=== PATIENT | female | born 1980 | race Asian ===

== ENCOUNTER 2017-10-10 04:41 | Inpatient (IN) | payer OTHER ==
[2017-10-10 05:17] VITALS: BMI 27.3
[2017-10-10] MEDS ORDERED: Lactated Ringer's 1,000 ML IV SCH (07:15)
[2017-10-10 07:46] LABS: #Basophils 0.1 thou/uL (0.0-0.2); #Eosinphils 0.1 thou/uL (0.0-0.7); #Lymphocytes 1.5 thou/uL (1.20-3.40); #Monocytes 0.6 thou/uL (0.11-0.59); #Neutrophils 7.8 thou/uL (1.40-6.50); %Basophils 0.7 % (0.0-1.0); %Eosinophils 0.9 % (0.0-10.0); %Monocytes 5.7 % (0.0-10.0); Hematocrit 40.3 % (36.0-47.0); Mean Platelet Volume 6.9 fL (7.4-10.4); White Blood Cell (WBC) Count 10.1 thou/uL (4.8-10.8)
[2017-10-10 07:57] LABS: Bilirubin Negative (Negative); Blood, Urine Moderate (Negative); Glucose, Urine (Dipstick) Negative (Negative); Ketone, Urine Trace mg/dL (Negative); Nitrite Negative (Negative); Protein, Urine (Dipstick) 30 mg/dL (Neg-Trace); Urobilinogen 0.2 mg/dL (0.2-1.0)
[2017-10-10 08:03] LABS: Bacteria/HPF 4+ HPF (None Seen); RBC/HPF 0-3 HPF (0-3)
[2017-10-10 08:10] LABS: ALT (SGPT) 14 U/L (8-55); AST (SGOT) 16 U/L (5-34); Alkaline Phosphatase 227 U/L (40-150); Anion Gap 14 mmol/L (10-20); BUN (Urea Nitrogen) 6 mg/dL (7.0-18.7); Bilirubin, Total 0.3 mg/dL (0.2-1.2); Calc. Creatinine Clearance 146 mL/min (70-130); Calcium 9.2 mg/dL (7.8-10.44); Carbon Dioxide 22 mmol/L (22-29); Chloride 107 mmol/L (98-107); Estimated GFR-MDRD Greater than 90; Globulin 3.2 g/dL (2.4-3.5); Protein, Total 6.4 g/dL (6.0-8.3)
[2017-10-10 08:16] LABS: Hyaline Casts/LPF 0-3 HYALINE CAST LPF (0-3 Hyaline)
[2017-10-10] MEDS ORDERED: Ondansetron HCl/PF 4 MG/2 ML Vial IVP PRN (09:39)
[2017-10-10] MEDS ORDERED: Promethazine HCl 25 MG/ML VIAL IM PRN (09:39)
[2017-10-10] MEDS ORDERED: Acetaminophen 500 MG TAB PO PRN (09:39)
[2017-10-10] MEDS ORDERED: Lidocaine 1% (PF) 30 ML VIAL SC PRN (09:39)
--- NOTE | 2017-10-10 12:10 | ULT ---
OB ULTRASOUND: Date: 10/10/17 HISTORY: Twin intrauterine gestation. Patient is currently having contractions. Evaluate weight and posi tioning of each fetus. COMPARISON: None available. FINDINGS: There is evidence of a twin intrauterine gestation. Twin A is in cephalic presentation, with Twin B i n transverse presentation with the head to the maternal right. Cardiac Doppler does demonstrate heart tones with heart rate of Twin A at 140 beats/minute and heart rate of Twin B at 1 52 beats/minute. The placenta is located anteriorly. While the lower uterine segment is not well visualized due to pos itioning of the head of Twin A in the lower uterine segment, there is no evidence of placenta p revia. There is an image demonstrating a membrane between each fetus. Subjectively, there does appear to be decrease in amniotic fluid volume. Amniotic fluid index of Twin A is calculated at 5.7 cm and amniotic fluid index of Twin B is calculated at 4.9 cm. Measurements TWIN A: BPD: 9.13 cm, 37 weeks HC: 31.6 cm, 35 weeks/3 days AC: 30.01 cm, 34 weeks FL: 6.84 cm, 35 weeks/1 day The estimated gestational age of Twin A is 35 weeks/2 days with an PAULA on 11/12/17. Gestational age b y last menstrual period is 36 weeks/4 days. Estimated weight by ultrasound is 2,507 gm (5 lbs, 8 oz). This represents 12th percentile for weight. Measurements of TWIN B: BPD: 8.39 cm, 33 weeks/5 days HC: 30.35 cm, 32 weeks/5 days AC: 31.54 cm, 35 weeks/3 days FL: 7.17 cm, 36 weeks/5 days The estimated gestational age of Twin B is 34 weeks/2 days with an PAULA on 11/19/17. Gestational age b y last menstrual period is 36 weeks/4 days. Estimated weight of Twin B is 2,674 gm (5 lbs, 14 o z). This represents 24th percentile for weight. anatomical structures were not evaluated on this examination and are difficult to evaluate due to gestational age of each fetus. IMPRESSION: 1. Twin intrauterine gestation with Twin A in cephalic presentation and Twin B in transverse present ation with head to the maternal right. Cardiac Doppler does demonstrate heart tones in each fet us. 2. Gestational age by ultrasound of Twin A is 35 weeks/2 days with an PAULA on 11/12/17. Estimated fet al weight of Twin A is 2,507 gm (5 lbs, 8 oz). 3. Gestational age of Twin B is 34 weeks/2 days with an PAULA on 11/19/17. Estimated weight of T win B is 2,674 gm (5 lbs, 14 oz). 4. Oligohydramnios. Above findings discussed with Kayley L&D nurse, on 10/10/17 at 1051 hours. CODE CR. POS: SB
--- NOTE | 2017-10-10 23:51 | HP ---
DATE OF ADMISSION: 10/10/2017 REASON FOR ADMISSION: Twin at 36-1/2 weeks' gestation, contractions, elevated blood pressu res, protein to creatinine ratio of 0.39. HISTORY OF PRESENT ILLNESS: The patient is a 37-year-old 1, para 0, who sees Dr. Hart, PAULA is 11/03/2017. She has dichorionic diamniotic in vitro twin . There was cephalic at last presentation and patient presented today with complaining of contractions. She was noted to have cain vated blood pressures of 140s/90s. Laboratory evaluation reveals no evidence of preeclampsia except for elevated protein to creatinine ratio on a clean catch specimen. She denies headache or scotoma. She denies rupture of membranes. 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 PAST MEDICAL HISTORY: Insulin resistance. PAST SURGICAL HISTORY: Denies. ALLERGIES: Denies. MEDICATIONS: Metformin and vitamins. SOCIAL HISTORY: Denies tobacco, alcohol, or drug use. FAMILY HISTORY: Noncontributory. REVIEW OF SYSTEMS: Noncontributory. PHYSICAL EXAMINATION: GENERAL: White female, in no acute distress. VITAL SIGNS: Blood pressure 142/86, afebrile, pulse 85. HEENT: Within normal limits. LUNGS: Clear to auscultation bilaterally. HEART: Regular rhythm. BREASTS: No masses bilaterally. ABDOMEN: Soft, nontender. Palpable contractions every 5 to 8 minutes. PELVIC: Vulva without lesions. Vagina without discharge. Cervix, 1, long, and high, cephalic. EXTREMITIES: Without clubbing, cyanosis or edema. heart rate tracing reveals category strip time 1, tracing x2. IMPRESSION: Elevated pressures, elevated protein to creatinine, 36-1/2 weeks' gestation with dichori onic diamniotic twins. PLAN: Admission, 24-hour urine, serial blood pressures, ultrasound and further evaluation.
--- NOTE | 2017-10-11 08:56 | PRG ---
DATE OF SERVICE: 10/11/2017 TIME OF SERVICE: 07:45 SUBJECTIVE: Ms. Ellington is resting comfortably. She has occasional contractions. She reports acti ve fetus x2. PHYSICAL EXAMINATION: VITAL SIGNS: Patient's blood pressures have been in 120s-130s/70s-80s throughout. She denies headac he or scotoma. ABDOMEN: Soft and nontender. FHTs 140s to 150s x2. PELVIC: Vulva without lesions. Vagina without discharge. Cervical exam deferred. EXTREMITIES: Trace edema, 1+ DTRs. LABORATORY DATA: A 24-hour urine pending. Ultrasound revealed cephalic twins. AIDA was measured at 4 and 5 respectively. This was reported as oligohydramnios. Of note, AIDA is not an appropriate felicitas urement for twins as largest pocket is the utilized measurement; however, this is somewhat low and pr obably represents oligohydramnios. IMPRESSION: 1. Elevated blood pressures, now normalizing at bed rest with an elevated protein to creatinine rati o with pending 24-hour urine at 36-37 weeks' gestation. 2. Dichorionic diamniotic twins. 3. Low AIDA/oligohydramnios. PLAN: Discussed patient care plan with Dr. Hart. We will go ahead and give the patient betamethas one 12 mg IM today and tomorrow and anticipate induction of labor in 48 hours. We will follow up on 24-hour urine after completes at 10 o'clock today.
[2017-10-11] MEDS: Betamet Acet/Betamet Na Ph 30 MG/5 ML VIAL IM SCH (10:40)
[2017-10-11 10:43] LABS: Collection Duration 24 hrs
[2017-10-11 11:11] LABS: Protein - 24 Hr 207 mg/24 hr (Less than 300); Protein, Urine 18 mg/dL (1-14)
[2017-10-11] MEDS ORDERED: Zolpidem Tartrate 5 MG TAB PO PRN (20:44)
[2017-10-12] MEDS: Betamet Acet/Betamet Na Ph 30 MG/5 ML VIAL IM SCH (10:44)
--- NOTE | 2017-10-12 12:24 | PRG ---
DATE OF SERVICE: 10/12/2017 TIME OF SERVICE: 10:20 a.m. SUBJECTIVE: The patient is doing well without complaints. She denies any vaginal bleeding, leakage of fluid, contractions or other concerns. She reports good movement x2. OBJECTIVE: VITAL SIGNS: Blood pressure is 119-142/75-96, pulse 81-113, respiratory rate 16 and temperature 98.8 . GENERAL: Awake and alert, in no acute distress. CHEST: Nonlabored breathing. ABDOMEN: Gravid, soft and nontender to palpation. NONSTRESS TEST: Baby A 150s, moderate variability, positive accelerations, no decelerations. Baby B 130s, moderate variability, positive accelerations, no decelerations. TOCO: Contractions every 4 minutes. LABORATORY DATA: A 24-hour urine returned with 207 mg of protein. ASSESSMENT AND PLAN: The patient will receive her second dose of steroids today with planned inducti on tomorrow for elevated blood pressures and oligohydramnios with chorionic diamniotic twin gestation . Continue to monitor at this time.
[2017-10-12] MEDS ORDERED: Acetaminophen/Codeine 30-300mg Tablet PO PRN (19:23)
[2017-10-12] MEDS ORDERED: HYDROcodone/Acetaminophen 5/325 mg Tablet PO PRN (19:23)
[2017-10-12] MEDS ORDERED: LR / Pitocin 40 units/1000 ml 1,000 ML IV PRN (19:23)
[2017-10-12] MEDS ORDERED: Lidocaine 1% (PF) 30 ML VIAL SC PRN (19:23)
[2017-10-12] MEDS ORDERED: LR 500 ML/Oxytocin 10 units 500 ML IV SCH (19:30)
[2017-10-13] MEDS ORDERED: Fentanyl 4 mcg/Marc 0.1% Cadd 100 ML ONE (07:22)
[2017-10-13] MEDS: Lactated Ringer's 1,000 ML IV SCH ×2 (10:00→22:44)
[2017-10-13] MEDS ORDERED: Dextrose 5%-Lactated Ringers 1,000 ML IV SCH (12:45)
[2017-10-13] MEDS ORDERED: Eucerin (Mineral Oil/Petrolatum,White) 30 gm Jar TOP PRN (13:39)
[2017-10-13] MEDS ORDERED: ePHEDrine/0.9% NaCl/PF SYRINGE 50 mg/10 ml SLOW IVP PRN (13:39)
[2017-10-13] MEDS ORDERED: Acetaminophen 325 MG TAB PO PRN (13:39)
[2017-10-13] MEDS ORDERED: Ondansetron HCl/PF 4 MG/2 ML Vial IVP PRN ×2 (13:39→17:10)
[2017-10-13] MEDS ORDERED: diphenhydrAMINE 50 MG/ML VIAL IVP PRN (13:39)
[2017-10-13] MEDS ORDERED: Naloxone HCl 0.4 mg/ml Vial IVP PRN ×2 (13:39)
[2017-10-13] MEDS ORDERED: Promethazine HCl 25 MG/ML VIAL IM PRN (13:39)
[2017-10-13] MEDS ORDERED: Lactated Ringer's 500 ML IV PRN (13:39)
[2017-10-13] MEDS ORDERED: Fentanyl 4mcg/Marcaine 0.1% Cassette 100 ML EPIDURAL SCH (13:45)
[2017-10-13] MEDS ORDERED: Communication Order-Pharmacy FS SCH (13:45)
[2017-10-13] MEDS ORDERED: Ondansetron HCl/PF 4 MG/2 ML Vial ONE ×2 (14:28→16:03)
[2017-10-13] MEDS ORDERED: Ketorolac Tromethamine 30 MG/ML VIAL ONE ×2 (14:28→16:02)
[2017-10-13] MEDS ORDERED: PHENYLEPHRINE-NS 100 MCG/ML 10 ML SYRINGE ONE ×2 (14:28→16:02)
[2017-10-13] MEDS ORDERED: Bicitra 30 ML UDCUP ONE (14:53)
[2017-10-13] MEDS ORDERED: CEFAZOLIN/Water 2 GM/20 ML SYRINGE ONE (14:53)
[2017-10-13 15:24] LABS: Hematocrit 38.7 % (36.0-47.0); Mean Platelet Volume 6.7 fL (7.4-10.4); Red Blood Cell (RBC) Count 4.06 mill/uL (4.20-5.40)
[2017-10-13] MEDS ORDERED: Oxytocin 10 UNITS/ML VIAL ONE (16:02)
[2017-10-13] MEDS ORDERED: Bupivacaine PF 0.5% 30 ML VIAL ONE (16:07)
[2017-10-13] MEDS ORDERED: Morphine PF 1 MG/ML SYR ONE (16:59)
[2017-10-13] MEDS ORDERED: Lanolin Ointment 7 GM TUBE TOP PRN (17:05)
[2017-10-13] MEDS ORDERED: Adacel (T-DAP) 0.5 ML VIAL IM ONE (17:05)
[2017-10-13] MEDS ORDERED: diphenhydrAMINE 25 MG CAP PO PRN (17:05)
[2017-10-13] MEDS ORDERED: Measles/Mumps/Rubella 10 MCG/0.5 ML VIAL SC ONE (17:05)
--- NOTE | 2017-10-13 17:08 | PDOC.OPDEL ---
OB Operative/Delivery Note Delivery Dr/Surgeon: Tanner Assist: Chris Pre-Delivery Diagnosis: arrest of dilation, medically indicated induction Procedure/Post Delivery Dx: primary low transverse CS Weeks gestation: 37 Anesthesia: epidural - Findings A Sex: female Weight: 5 lb 1 oz - 1 min: 8 - 5 min: 9 B Sex: male Weight: 5 lb 14 oz - 1 min: 8 - 5 min: 9 - Additional Findings/Plan Placenta delivered: manual removal findings: low transverse hysterotomy without extension Estimated blood loss: 500ml Post delivery plan: routine recovery
[2017-10-13] MEDS ORDERED: HYDROmorphone 2 MG/ML VIAL SLOW IVP PRN (17:10)
[2017-10-13] MEDS ORDERED: Meperidine HCl/PF 25 MG/ML VIAL SLOW IVP PRN (17:10)
[2017-10-13] MEDS ORDERED: LR w/ Pitocin 40 units/1000 ML BAG IV SCH (17:15)
[2017-10-13] MEDS ORDERED: Ketorolac Tromethamine 30 MG/ML VIAL IVP SCH (17:15)
[2017-10-13] MEDS ORDERED: Misoprostol 200 MCG TAB PR SCH (17:15)
--- NOTE | 2017-10-13 17:34 | OP ---
DATE OF SERVICE: 10/13/2017 PREOPERATIVE DIAGNOSES: 1. A 37-year-old female G1, P0 at 37 weeks with dichorionic diamniotic twin gestation. 2. Mild gestational hypertension. 3. Labor induction with failure to progress past 6 cm, -2 station. POSTOPERATIVE DIAGNOSES: 1. A 37-year-old female G1, P0 at 37 weeks with dichorionic diamniotic twin gestation. 2. Mild gestational hypertension. 3. Labor induction with failure to progress past 6 cm, -2 station. PROCEDURE PERFORMED: Primary low transverse section without extension. SURGEON: Tracee Hart M.D. COLOR ROOM ATTENDANT SURGEON: Jose Cisneros M.D., OB Hospitalist. ANESTHESIA: Epidural. ESTIMATED BLOOD LOSS: 500 mL COUNTS: Correct x2. 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 FINDINGS: 1. Twin A female, vertex presentation, clear amniotic fluid, Apgars 8 and 9, weight 5 pounds 1 ounce. 2. Twin B male infant, vertex presentation, clear amniotic fluid noted. weight 5 pounds 14 ou nces, Apgars 8 and 9. 3. Normal appearing fallopian tubes, uterus, and ovaries. 4. Clear urine. DRAINS: Kingston catheter post-procedure. COMPLICATIONS: None. DISPOSITION: To the recovery room stable. DESCRIPTION OF OPERATIVE PROCEDURE: The patient previously received informed consent in regards to gunnar may. She was taken back to the operating room where she received adequate dosing of her epidural anesthesia. She was prepped and draped in usual sterile fashion. SCDs were in place as well as a Fo becky catheter. A Pfannenstiel incision was made in the lower abdomen. This was carried down to the f ascia. Fascia was nicked in midline. Fascial incision was extended bilaterally with the use of curv ed Green scissors. Rectus fascia was then dissected superiorly and inferiorly off the rectus muscle b ellies. The rectus muscle bellies were divided in the midline. Peritoneal cavity was entered. An Al exis O retractor was then placed. A 2 cm hysterotomy incision was made in the lower uterine segment above the vesicouterine peritoneal reflection. Hysterotomy incision was extended via finger fraction ation. Twin A was delivered in the vertex presentation. Mouth and nares were bulb suctioned on the abdomen. The cord was doubly clamped and cut and handed to pediatric team in attendance. Twin B was then noted to be in vertex presentation. Amniotic bag was ruptured. Baby was delivered in vertex p resentation. Mouth and nares of twin B were bulb suctioned on the abdomen. Cord was doubly clamped and cut and handed to pediatric team in attendance. Usual code blood was then obtained. The placent a was dichorionic diamniotic and manually extracted. The uterus was externalized and the uterus cure tted of any remaining placental fragments with a dry laparotomy sponge. Hysterotomy incision was the n closed in running locking fashion with Monocryl suture with good hemostasis being confirmed. The p jac was irrigated and suctioned. Again, hemostasis was confirmed. The Haroon O retractor was daniella kell and again hemostasis was confirmed. The rectus muscle bellies were hemostatic prior to fascial c losure. The fascia was closed with 0 PDS x2 in running continuous fashion. The subcuticular layer w as then closed with 3-0 plain gut and stapling of the skin was utilized to close the skin incision. The surgery was terminated and no anesthetic or surgical complications.
[2017-10-13] MEDS ORDERED: Bupivacaine 0.25% 10 ML VIAL ONE (19:41)
[2017-10-13 19:47] LABS: Anion Gap 9 mmol/L (10-20); BUN (Urea Nitrogen) 6 mg/dL (7.0-18.7); Calc. Creatinine Clearance 141 mL/min (70-130); Calcium 8.1 mg/dL (7.8-10.44); Carbon Dioxide 23 mmol/L (22-29); Chloride 109 mmol/L (98-107); Estimated GFR-MDRD Greater than 90; Magnesium 1.3 mg/dL (1.6-2.6); Phosphorus 2.8 mg/dL (2.3-4.7)
[2017-10-13] MEDS: Docusate (Surfak) 240 MG CAP PO SCH (22:44)
[2017-10-13] MEDS: Ibuprofen 800 MG TAB PO SCH (22:44)
[2017-10-13] MEDS: Ferrous Sulfate 325 MG TAB PO SCH (22:44)
[2017-10-13] MEDS ORDERED: Sodium Chloride 0.9% 10 ML ONE (23:29)
[2017-10-14] MEDS: Lactated Ringer's 1,000 ML IV SCH (05:15)
[2017-10-14] MEDS: HYDROcodone/Acetaminophen 5/325 mg Tablet PO PRN ×5 (05:48→22:54)
[2017-10-14] MEDS: Ibuprofen 800 MG TAB PO SCH ×3 (05:48→21:05)
[2017-10-14 06:09] LABS: Hematocrit 32.8 % (36.0-47.0); Mean Platelet Volume 6.5 fL (7.4-10.4); Red Blood Cell (RBC) Count 3.43 mill/uL (4.20-5.40); White Blood Cell (WBC) Count 13.1 thou/uL (4.8-10.8)
--- NOTE | 2017-10-14 07:39 | PDOC.PP ---
Post Progress Note Post Day #: 1 Subjective: no n/v. No SOB. Good pain control. PO intake tolerated: yes Flatus: yes Ambulation: yes Vital Signs (12 hours) Temp Pulse Resp BP Pulse Ox 10/14/17 04:15 98.4 F 98 16 138/90 10/14/17 04:00 98.4 F 98 16 10/13/17 23:50 98.8 F 101 H 20 10/13/17 23:45 78 18 140/76 10/13/17 22:45 97 18 126/63 10/13/17 21:45 98.6 F 91 18 138/82 99 10/13/17 21:20 87 18 159/87 H 10/13/17 20:45 98.8 F 101 H 20 99 Weight Weight 154 lb - Physical Examination General: NAD Cardiovascular: no m/r/g, RRR Respiratory: clear to auscultation bilaterally, non-labored breathing Abdominal: + bowel sounds, lochia, no distention, appropriately TTP Result Diagrams: 10/14/17 05:59 10/13/17 19:08 Additional Labs: Post Labs Blood Type AB POSITIVE 10/13/17 15:16 Hep Bs Antigen Non-Reactive S/CO (NonReactive) 10/10/17 07:20 - Assessment/Plan post op day 1 doing well. No further tachy episodes. lytes normal. routine post op care.
[2017-10-14] MEDS: Docusate (Surfak) 240 MG CAP PO SCH ×2 (09:55→21:05)
[2017-10-14] MEDS: Prenatal Vitamin 1 TAB PO SCH (09:55)
[2017-10-14] MEDS: Simethicone Chewable 80 MG TAB PO PRN ×2 (09:55→14:51)
[2017-10-14] MEDS: Ferrous Sulfate 325 MG TAB PO SCH ×2 (09:58→22:08)
[2017-10-15] MEDS: HYDROcodone/Acetaminophen 5/325 mg Tablet PO PRN ×3 (03:00→21:18)
[2017-10-15] MEDS: Simethicone Chewable 80 MG TAB PO PRN ×3 (03:04→20:13)
[2017-10-15] MEDS: Ibuprofen 800 MG TAB PO SCH ×3 (06:04→21:18)
[2017-10-15] MEDS: Prenatal Vitamin 1 TAB PO SCH (09:54)
[2017-10-15] MEDS: Docusate (Surfak) 240 MG CAP PO SCH ×2 (09:54→20:13)
[2017-10-15] MEDS: Ferrous Sulfate 325 MG TAB PO SCH ×2 (09:55→23:13)
--- NOTE | 2017-10-15 11:45 | PDOC.PP ---
Post Progress Note Post Day #: 2 PO intake tolerated: yes Flatus: yes Ambulation: yes Vital Signs (12 hours) Temp Pulse Resp BP BP 10/15/17 07:50 98.0 F 82 16 133/76 10/15/17 03:14 97.7 F 86 18 135/70 Weight Weight 154 lb - Physical Examination General: NAD Cardiovascular: no m/r/g, RRR Respiratory: clear to auscultation bilaterally, non-labored breathing Abdominal: + bowel sounds, lochia, no distention, appropriately TTP Result Diagrams: 10/14/17 05:59 10/13/17 19:08 Additional Labs: Post Labs Blood Type AB POSITIVE 10/13/17 15:16 Hep Bs Antigen Non-Reactive S/CO (NonReactive) 10/10/17 07:20 - Assessment/Plan doing well post op day 2--primary c/s for twins. recovering well. routine care.
[2017-10-15] MEDS ORDERED: Bisacodyl 10 MG SUPP PR SCH (21:15)
[2017-10-16] MEDS: HYDROcodone/Acetaminophen 5/325 mg Tablet PO PRN ×5 (01:39→22:34)
[2017-10-16] MEDS: Ibuprofen 800 MG TAB PO SCH ×4 (07:19→21:26)
[2017-10-16] MEDS: Docusate (Surfak) 240 MG CAP PO SCH ×2 (08:35→21:26)
[2017-10-16] MEDS: Prenatal Vitamin 1 TAB PO SCH (08:35)
[2017-10-16] MEDS: Simethicone Chewable 80 MG TAB PO PRN ×2 (08:37→17:15)
[2017-10-16] MEDS: Ferrous Sulfate 325 MG TAB PO SCH ×2 (09:03→21:27)
--- NOTE | 2017-10-16 13:59 | PDOC.PP ---
Post Progress Note Post Day #: 2 PO intake tolerated: yes Flatus: yes Ambulation: yes Vital Signs (12 hours) Temp Pulse Resp 10/16/17 07:50 98.2 F 99 18 Weight Weight 154 lb - Physical Examination General: NAD Cardiovascular: no m/r/g, RRR Respiratory: clear to auscultation bilaterally, non-labored breathing Abdominal: + bowel sounds, lochia, no distention, appropriately TTP Result Diagrams: 10/14/17 05:59 10/13/17 19:08 Additional Labs: Post Labs Blood Type AB POSITIVE 10/13/17 15:16 Hep Bs Antigen Non-Reactive S/CO (NonReactive) 10/10/17 07:20 - Assessment/Plan post op day number 2 -twins c/s delivery. progressing well. routine post op care.
[2017-10-17] MEDS: HYDROcodone/Acetaminophen 5/325 mg Tablet PO PRN ×3 (02:47→11:09)
[2017-10-17] MEDS: Ibuprofen 800 MG TAB PO SCH (06:11)
[2017-10-17] MEDS: Simethicone Chewable 80 MG TAB PO PRN (06:49)
--- NOTE | 2017-10-17 08:07 | PDOC.PP ---
Post Progress Note Post Day #: 4 PO intake tolerated: yes Flatus: yes Ambulation: yes Vital Signs (12 hours) Temp Pulse Resp BP 10/17/17 00:35 97.9 F 74 18 148/83 H Weight Weight 154 lb - Physical Examination General: NAD Cardiovascular: no m/r/g, RRR Respiratory: clear to auscultation bilaterally, non-labored breathing Abdominal: + bowel sounds, lochia, no distention, appropriately TTP Result Diagrams: 10/14/17 05:59 10/13/17 19:08 Additional Labs: Post Labs Blood Type AB POSITIVE 10/13/17 15:16 Hep Bs Antigen Non-Reactive S/CO (NonReactive) 10/10/17 07:20 - Assessment/Plan doing well. d/c home f/u post op day 7 and 6 weeks
[2017-10-17 08:20] VITALS: BP 138/84; TEMP 98.1
[2017-10-17] MEDS: Prenatal Vitamin 1 TAB PO SCH (09:55)
[2017-10-17] MEDS: Docusate (Surfak) 240 MG CAP PO SCH (09:57)
[2017-10-17] MEDS: Ferrous Sulfate 325 MG TAB PO SCH (09:58)
== END 2017-10-17 13:00 | disposition home or self-care (01) | DRG 765 ==
LOC: L&D/OP 04:41 → L&D 09:03 → 3SW 10-13 20:43
PROVIDERS: ADMIT Obstetrics & Gynecology; ATTEND Obstetrics & Gynecology
PROC: 0U7C7ZZ Dilation of Cervix, Via Natural or Artificial Opening (ICD-10-PCS; 2017-10-12)
PROC: 3E0P3VZ Introduction of Hormone into Female Reproductive, Percutaneous Approach (ICD-10-PCS; 2017-10-12)
PROC: 10D00Z1 Extraction of Products of Conception, Low, Open Approach (ICD-10-PCS; principal; 2017-10-13)
PROC: 10907ZC Drainage of Amniotic Fluid, Therapeutic from Products of Conception, Via Natural or Artificial Opening (ICD-10-PCS; 2017-10-13)
DX: O13.4 Gestational [pregnancy-induced] hypertension without significant proteinuria, complicating childbirth (principal); O41.03X0 Oligohydramnios, third trimester, not applicable or unspecified; O30.043 Twin pregnancy, dichorionic/diamniotic, third trimester; Z37.2 Twins, both liveborn; O99.89 Other specified diseases and conditions complicating pregnancy, childbirth and the puerperium; Z3A.36 36 weeks gestation of pregnancy; O66.40 Failed trial of labor, unspecified; R73.03 Prediabetes
CPT/HCPCS: 36415; 76810; 80048; 80053; 81001; 82570; 83735; 84100; 84156; 84443; 85025; 85027; 86780; 86850; 86900; 86901; 87340; 93005; 93010; A4216; C1726; J0595; J0702; J1885; J2274; J2405; J2590; J7120; S0020